=== PATIENT | female | born 1980 | race Caucasian/White ===

== ENCOUNTER 2019-07-20 10:59 | Emergency (ER) | payer OTHER, SELFPAY ==
[2019-07-20 11:02] VITALS: BP 140/96; PULSE 94; RESP 18; TEMP 36.9; O2SAT 99
--- NOTE | 2019-07-20 11:58 | ED.GENADULT ---
HPI - General Adult General Chief complaint: Wound/Laceration <ARSH Joshi Last Filed: 07/20/19 12:04> Stated complaint: dog bite to lip <RASH Joshi Filed: 07/20/19 12:04> Time Seen by Provider: 07/20/19 11:13 <ARSH Joshi Last Filed: 07/20/19 12:04> Source: patient <ARSH Joshi Filed: 07/20/19 12:04> Mode of arrival: ambulatory <ARSH Joshi Last Filed: 07/20/19 12:04> Limitations: no limitations <ARSH Joshi Last Filed: 07/20/19 12:04> History of Present Illness HPI narrative: Patient is a 39-year-old female who presents to emergency department for evaluation of dog bite to the left lower lip that occurred just prior to arrival patient notes her tetanus to be up-to-date patient notes aching pain of the lip worse with touch patient is unsure as to the dog that bit her was outside when the dog approached her and her dog causing the dogs to get into an altercation resulting in the bite to the lip patient notes isolated wound denies any other complaints or wounds. Patient on arrival resting comfortably in the room in no distress <ARSH Joshi Last Filed: 07/20/19 12:04> Related Data Allergies/adverse reactions: Allergies Allergy/AdvReac Type Severity Reaction Status Date / Time latex Allergy Intermediate Anaphylaxis Verified 07/20/19 11:12 Penicillins Allergy Intermediate Anaphylaxis Verified 07/20/19 11:12 <ARSH Joshi Last Filed: 07/20/19 12:04> Review of Systems Review of Systems: Narrative: CONSTITUTIONAL: Denies fever, chills, or sweats. EYES: Denies redness, or discharge. ENT: Denies rhinorrhea, epistaxis GASTROINTESTINAL: Denies nausea, vomiting SKIN: Positive for laceration deformity of the lip MUSCULOSKELETAL: Positive for rib pain NEUROLOGIC: Denies headache, numbness, dizziness <ARSH Joshi Last Filed: 07/20/19 12:04> [facility] Social History Social History: Social History Gender identity (if verbalized by the patient): Female <Edin Blue PA-C - Last Filed: 07/20/19 12:04> Exam Narrative: Exam Narrative: GENERAL: Well-appearing, well-nourished, and in no acute distress. HEAD: Normocephalic, patient with 3 cm x 1 cm gap deformity of the left lower lip from the midline laterally large defect centrally with irregular borders involving the majority of the vermilion border EYES: PERRLA and EOMI. ENT: Nares clear, no rhinorrhea or epistaxis. Mucous membranes moist. Oropharynx without tonsillar hypertrophy exudate or other lesions. CHEST: Clear to auscultation. No respiratory distress. No wheezes rales or rhonchi HEART: Regular rate and rhythm. No murmur heard. EXTREMITIES: Normal range of motion. No edema. SKIN: Warm, dry, no rash. NEURO: No focal deficits. Alert and oriented x3. Cranial nerves II through XII grossly intact PSYCH: Normal mood and affect. <Edin Blue PA-C - Last Filed: 07/20/19 12:04> Course Course Emergency Course: Patient in the room at this time in no distress aware of case findings treatment plan and diagnosis as well as recommendations <Edin Blue PA-C - Last Filed: 07/20/19 12:04> LUMP RECEIVER/PA Physician Supervision Attestation for Edin Blue. [id number] with the patient, she needs to leave here, to care for her 11 and 14-year-old children. Her is due back from [facility] today. He had a gunshot wound to the back and is paralyzed. She was hoping that her mother can take her to either [place] or [place] later in the day, to see a plastic surgeon, for repair of the very complex lip wound. The piece of tissue from the middle of the left lower lip to beneath the lips is missing. She says her tetanus shot is up-to-date. Will give antibiotics here and antibiotics for home, and pain medicine for home. She
[2019-07-20] MEDS: CEPHALEXIN 500 MG CAPSULE PO (12:01)
== END 2019-07-20 12:10 | disposition left against medical advice (07) ==
PROVIDERS: Emergency Provider Emergency Medicine
DX: S01.551A Open bite of lip, initial encounter (principal); W54.0XXA Bitten by dog, initial encounter
CPT/HCPCS: 99283; A9270

== ENCOUNTER 2020-12-23 12:35 | Emergency (ER) | payer OTHER, SELFPAY ==
[2020-12-23 12:47] VITALS: BP 94/76; PULSE 89; RESP 16; TEMP 36.8; O2SAT 99
--- NOTE | 2020-12-23 12:53 | ED.UPPEXIN ---
HPI - Extremity Injury (Upper) General Chief Complaint: Extremity Injury, Upper Stated Complaint: right 2nd finger swelling Time Seen by Provider: 12/23/20 13:30 Source: patient and RN notes reviewed Mode of arrival: ambulatory Limitations: no limitations History of Present Illness HPI narrative: 40-year-old female presents with concern for infection to the second digit of the right hand. Reports Monday she was junking and scraped her hand. Reports since then has become red, swollen, painful with drainage. Reports the whole finger is swollen and painful. Denies intervention. MD complaint: injury to: right and finger Related Data Allergies Allergy/AdvReac Type Severity Reaction Status Date / Time latex Allergy Intermediate Anaphylaxis Verified 07/20/19 11:12 Penicillins Allergy Intermediate Anaphylaxis Verified 07/20/19 11:12 Review of Systems Review of Systems: CONSTITUTIONAL: Denies malaise, chills, sweats, or fever. SKIN: Reports draining wound to the second digit of the right hand MUSCULOSKELETAL: Reports pain, swelling, redness to the second edge of the right hand NEUROLOGIC: Denies numbness, weakness All systems reviewed & are unremarkable except as noted in HPI and below PMFSH Social History Social History Gender identity (if verbalized by the patient): Female Comments At time of signature, agree with nursing past medical, surgical, social and family history. There is no relevant family history pertinent to the presenting complaint Exam Narrative: GENERAL: Well-appearing, well-nourished, and in no acute distress. HEAD: Normocephalic, atraumatic. EYES: PERRLA, sclera clear ENT: Mucous membranes moist. NECK: Supple. CHEST: No respiratory distress. Speaks in full sentences. HEART: Regular rate and rhythm. EXTREMITIES: Second digit of right hand has limited range of motion moderate erythema and edema. SKIN: Warm, dry, no visible rash. NEURO: Alert and oriented x3. PSYCH: Normal mood and affect Course Course Emergency Course: Patient is aware of diagnosis, understands and agrees to treatment plan. Anticipatory guidance given. Patient agrees to follow-up as directed and is aware of reasons to seek care at the emergency department. Portions of this record may have been created with voice recognition software Vital Signs Vital signs: Vital Signs Temperature 98.2 F 12/23/20 12:47 Pulse Rate 89 12/23/20 12:47 Respiratory Rate 16 12/23/20 12:47 Blood Pressure 94/76 L 12/23/20 12:47 Pulse Oximetry 99 12/23/20 12:47 Temperature 98.2 F 12/23/20 12:47 Pulse Rate 89 12/23/20 12:47 Respiratory Rate 16 12/23/20 12:47 Blood Pressure 94/76 L 12/23/20 12:47 Pulse Oximetry 99 12/23/20 12:47 Reviewed. MDM - Extremity Injury (Upper) MDM Narrative Medical decision making narrative: Exam findings show no acute concerns or changes; patient is non-toxic appearing and is in no distress. Patient is appropriate for outpatient treatment and follow-up. Differential Diagnosis Differential diagnosis: Likely finger sprain and other (Finger fracture, cellulitis, abscess, infected wound) Critical Care Time Critical Care Time Critical Care Time: No Discharge Plan Discharge Clinical Impression: Finger infection Patient Disposition: Home, Self-Care Condition: Stable Instructions: Antibiotic Form, Abscess (ED) Additional Instructions: Soak your finger: Soak your finger in a mixture of equal parts vinegar and water 3 or 4 times each day. This will help decrease inflammation. Apply a warm compress: Soak a washcloth in warm water and place it on your nail. This will help decrease inflammation. Elevate: Raise your nail above the level of your heart as often as you can. This will help decrease swelling and pain. Prop your nail on pillows or blankets to keep it elevated comfortably. Use lotion: Apply lotion after you wash your hands. Thi
--- NOTE | 2020-12-23 14:00 | PC.NURSE ---
front desk clerk in to [employer]
== END 2020-12-23 14:14 | disposition home or self-care (01) ==
PROVIDERS: Emergency Provider Nurse Practitioner
DX: L08.9 Local infection of the skin and subcutaneous tissue, unspecified (principal); Z90.5 Acquired absence of kidney
CPT/HCPCS: 10140; 87070; 87077; 87147; 87186; 87205; 99213; G0463

== ENCOUNTER 2021-01-07 16:17 | Emergency (ER) | payer OTHER, SELFPAY ==
[2021-01-07 16:40] VITALS: BP 141/90; PULSE 91; RESP 20; TEMP 37.1; O2SAT 99
--- NOTE | 2021-01-07 16:57 | ED.SKABFB ---
HPI - Skin/Abscess/Foreign Bdy General Chief complaint: Skin/Abscess/Foreign Body Stated complaint: nonhealing wounds Source: patient and RN notes reviewed Limitations: no limitations History of Present Illness HPI narrative: The patient, previously mostly healthy yet without doctor visits, presents with post procedure wound check. She states she has 2 skin lesions on her right upper extremity, for which the finger lesion was lanced at mid month. The wound culture came out heavy growth of beta-hemolytic, group A strep [no susceptibility testing], and poly resistant Atinobacter calc-rony sp -but sensitive to Augmentin, and the Bactrim she was given x 7days. She reports the ecthyma lesion on her forearm is unchanged, and she has continued discomfort of the right index finger. Symptoms are mild, worse with activity, better at rest; no fever, streaking, abscess/induration, discharge. Patient advised to follow-up with PMD, hand surgeon and or wound clinic [reference provided]. Related Data Allergies Allergy/AdvReac Type Severity Reaction Status Date / Time latex Allergy Intermediate Anaphylaxis Verified 07/20/19 11:12 Penicillins Allergy Intermediate Anaphylaxis Verified 07/20/19 11:12 Review of Systems Review of Systems: The patient has been informed that they may have pre-hypertension or Hypertension based on a BP reading in the department. I recommend that the patient call the primary care provider listed on their discharge instructions or a physician of their choice this week to arrange follow up for further evaluation of possible pre-hypertension or Hypertension General/Constitutional: No weight loss,fever Eyes: N0: Redness,discharge Ears/Nose/Throat: No: Epistaxis,ear discharge Respiratory: Denies: Hemoptysis Gastrointestinal: No Vomiting, Bleeding-rectal Skin: REPORTS lumps, eruption Neurologic: No Focal Weakness,Sz Hematologic: Denies: Petechiae/Purpura Psychiatric: No: Suicida ideationl All Other Systems: Reviewed and Negative PMFSH Social History Social History Gender identity (if verbalized by the patient): Female Comments At time of signature, agree with nursing past medical, surgical, social and family history. There is no relevant family history pertinent to the presenting complaint Exam Narrative: General Appearance: Obese/well nourished, Conjunctiva clear Ears: External ear normal, Auditory canal normal Nose: Normal nose, Nares clear Mouth/Throat: Normal appearing, Normal lips Neck: Supple Respiratory: Airway patent, No respiratory distress Ms-finger: Nl strength (mostly intact, limited flexion/extension by pain), Tenderness ( extensor, with mild decreased ROM), Scant swelling (laterally), Other (no anterior drawer, no collateral laxity) Skin: Warm, Dry, Normal color; forearm nickel size , impetiginous lesion characterized crusted sore and central erosion, ulceration Neurological: A&O x3, l affect Course Vital Signs Vital signs: Vital Signs Temperature 98.8 F 01/07/21 16:40 Pulse Rate 91 01/07/21 16:40 Respiratory Rate 20 01/07/21 16:40 Blood Pressure 141/90 H 01/07/21 16:40 Pulse Oximetry 99 01/07/21 16:40 Temperature 98.8 F 01/07/21 16:40 Pulse Rate 91 01/07/21 16:40 Respiratory Rate 20 01/07/21 16:40 Blood Pressure 141/90 H 01/07/21 16:40 Pulse Oximetry 99 01/07/21 16:40 Discharge Plan Discharge Clinical Impression: Ecthyma, Pruritic condition Patient Disposition: Home, Self-Care Condition: Stable Instructions: Cellulitis (ED) Additional Instructions: Stop clindamycin if diarrhea occurs; take clindamycin with food, probiotic and/or antacid Keep photo log of area,Return if worsens to hospital See wound care clinic in follow-up [Ranjith [phone]] Prescriptions: New clindamycin HCl 300 mg capsule 300 mg PO TID Qty: 21 RF: 0 mupirocin 2 % ointment 1 ap
--- NOTE | 2021-01-07 17:40 | PC.NURSE ---
wound was wraped with tefla and coban
== END 2021-01-07 17:46 | disposition home or self-care (01) ==
PROVIDERS: Emergency Provider Emergency Medicine
DX: L08.0 Pyoderma (principal); L29.9 Pruritus, unspecified
CPT/HCPCS: 99213; G0463

== ENCOUNTER 2021-08-24 18:16 | Emergency (ER) | payer OTHER, SELFPAY ==
[2021-08-24 18:22] VITALS: BP 130/86; PULSE 96; RESP 16; TEMP 36.7; O2SAT 100
--- NOTE | 2021-08-24 18:58 | ED.ABDPAIN ---
HPI - Abdominal Pain General Chief Complaint: Abdominal Pain Stated Complaint: abd pain Time Seen by Provider: 08/24/21 18:58 Source: patient, RN notes reviewed and old records reviewed Mode of arrival: ambulatory Limitations: no limitations History of Present Illness HPI narrative: 41-year-old female presents to the [facility] with generalized abdominal pain since yesterday. Patient states that she has had diarrhea, denies vomiting. Denies chest pain or shortness of breath. Denies fevers. history of her gallbladder removed. Denies taking any medications MD elicited complaint: abdominal pain Onset (ago): day(s) (1) Related Data Home Medications Medication Instructions Recorded Confirmed No Home Medications 08/24/21 08/24/21 Allergies Allergy/AdvReac Type Severity Reaction Status Date / Time latex Allergy Intermediate Anaphylaxis Verified 07/20/19 11:12 Penicillins Allergy Intermediate Anaphylaxis Verified 07/20/19 11:12 Review of Systems Review of Systems: All systems reviewed & are unremarkable except as noted in HPI and below Constitutional: Constitutional: Reports no additional constitutional complaints, Denies body ache(s), Denies chills and Denies fever(s) Eyes: Eyes: Reports no additional eye complaints ENT: Reports system reviewed and no additional complaints, except as documented Cardiovascular: Cardiovascular: Reports no additional cardiovascular complaints, Denies chest pain and Denies dyspnea Respiratory: Respiratory: Reports no additional respiratory complaints, Denies cough and Denies dyspnea Gastrointestinal: Gastrointestinal: Reports as per HPI, Reports abdominal pain, Reports diarrhea, Denies nausea and Denies vomiting Genitourinary: Genitourinary: Reports no additional female genitourinary complaints Musculoskeletal: Musculoskeletal: Reports no additional musculoskeletal complaints Integumentary/Breasts: Skin/Breast: Reports system reviewed and no additional complaints, except as docu Neurologic: Reports system reviewed and no additional complaints, except as documented Psychiatric: Psychiatric: Reports no additional psychiatric complaints Allergic/Immunologic: Allergic/Immunologic: Reports no additional allergic/immunologic complaints PMFSH Surgical History Surgical History (Updated 08/24/21 @ 19:12 by Eugenie Yi APRN) Hx of cholecystectomy Social History Social History Gender identity (if verbalized by the patient): Female Comments At the time of my signature, I reviewed and agree with the nursing past medical, surgical, social, and family history. There is no relevant family history pertinent to the patient complaint. Exam Const: General: cooperative, healthy appearing, comfortable, well developed, alert and ill appearing (in pain) acutely Nutritional Appearance: well nourished and obese Orientation/consciousness: patient oriented x3 Limitations: no limitations HENMT: Head: normal to inspection Ears: external ears normal Eyes: Pupils: Equal, round and reactive pupils present Neck: Neck: normal visual inspection, no lymphadenopathy and no meningeal signs Chest: Chest palpation & inspection: normal inspection of the chest Resp: Effort & Inspection: normal respiratory effort, able to speak in complete sentences and no use of accessory muscles Auscultation: clear to auscultation bilaterally Cardio: Rate: regular rate Rhythm: regular rhythm GI: Inspection: distended GI Palp: Yes Soft to palpation, Yes Tenderness to palpation present (GI) and Yes Guarding due to palpation present (GI) Auscultation: normal bowel sounds Back/Spine/Pelvis: Back: no CVA tenderness Skin: General skin exam: normal color and no rashes or lesions noted Rashes: no rashes Wounds: no wounds Neuro: General: patient oriented x3, gait normal, moves all extremities, no meningeal signs and no focal motor deficits Cranial nerves: Yes
== END 2021-08-24 19:06 | disposition short-term general hospital (02) ==
PROVIDERS: Emergency Provider Nurse Practitioner
DX: R10.84 Generalized abdominal pain (principal); Z90.5 Acquired absence of kidney; Z86.16 Personal history of COVID-19
CPT/HCPCS: 99212; G0463

== ENCOUNTER 2021-08-24 19:43 | Emergency (ER) | payer OTHER, SELFPAY ==
--- NOTE | ~2021-08-24 | CT_ITS ---
EXAMINATION: CT abdomen pelvis wo con DATE: 08/25/2021 00:15 INDICATION: Diffuse abdominal pain, diarrhea for one day. Leukocytosis. TECHNIQUE: Computed tomography (CT) of the abdomen and pelvis was performed without intravenous contr ast. Automated exposure control and iterative reconstruction technique were employed. Exam dose: 142 8.34 mGy-cm total exam DLP. COMPARISON: 07/05/2014 CT abdomen pelvis FINDINGS: The lung bases are clear. Normal heart size. No pericardial or pleural effusion. Status post cholecystectomy. No bile duct or pancreatic duct dilatation. No hepatic, splenic, pancreatic space-occupying mass lesion. 7 x 8.9 mm right adrenal mass, likely an adenoma. The adrenal glands are otherwise unremarkable. Status post left nephrectomy. No right renal mass lesion is evident on this limited noncontrast exami nation. No right urinary tract calculus or hydroureteronephrosis. Urinary bladder is evacuated. The u terus and adnexal areas are unremarkable. Normal caliber of the abdominal aorta. No intraperitoneal or retroperitoneal or pelvic mass lesion or adenopathy or ascites. Normal appendix. There is minimal colonic diverticulosis; no CT evidence of diverticulitis. No bowel obstruction, bowel wall thickening, pneumatosis or intraperitoneal free air. Included skeletal structures are unremarkable. 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 Reviewed, dictated and finalized at [facility].
[2021-08-24 19:48] VITALS: BP 121/77; PULSE 94; RESP 16; TEMP 36.2; O2SAT 100
[2021-08-24 20:14] LABS: Basophils Absolute Auto 0.1 K/mm3 (0.0-0.1); Basophils Percent Auto 0.3 % (0.2-1.2); Eosinophils Absolute Auto 0.5 K/mm3 (0-0.3); Eosinophils Percent Auto 3.1 % (0-4.4); Hematocrit 41.9 % (37.0-47.0); Immature Granulocyte Absolute 0.11 K/mm3 (0.00-0.031); Immature Granulocyte Percent A 0.7 % (0-0.5); Lymphocytes Absolute Auto 2.85 K/mm3 (0.9-3.2); Lymphocytes Percent Auto 16.8 % (18.3-44.2); Mean Corpuscular Hemoglobin 28.2 pg (26-34); Mean Corpuscular Volume 90.9 fl (80-100); Mean Platelet Volume 9.4 fl (7.4-10.4); Monocytes Absolute Auto 1.2 K/mm3 (0.1-0.6); Monocytes Percent Auto 6.9 % (2.6-8.5); Neutrophils Absolute Auto 12.2 K/mm3 (1.3-6.7); Neutrophils Percent Auto 72.2 % (45.5-73.1); Platelet Count Result 361 k/mm3 (150-375); Red Blood Count 4.61 M/mm3 (4.2-5.4); Red Cell Distribution Width 13.9 % (11.5-14.5); White Blood Count 16.9 K/mm3 (4.5-10.0)
[2021-08-24 20:19] LABS: Alanine Aminotransferase 24 U/L (6-35); Alkaline Phosphatase 93 U/L (38-126); Anion Gap 6 mmol/L (8-16); Aspartate Amino Transferase 23 U/L (14-36); Bilirubin,Total 0.6 mg/dL (0.2-1.3); Blood Urea Nitrogen 10 mg/dL (7-17); Calcium 9.2 mg/dL (8.4-10.2); Carbon Dioxide 24 mmol/L (22-30); Chloride 106 mmol/L (98-107); Estimated Glomerular Filt Rate > 60; Glucose 78 mg/dL (65-110); Lipase 23 U/L (23-300); Potassium 4.1 mmol/L (3.4-5.0); Sodium 136 mmol/L (137-145)
--- NOTE | 2021-08-24 22:37 | ED.ABDPAIN ---
HPI - Abdominal Pain General Chief Complaint: Abdominal Pain Stated Complaint: abd pain Time Seen by Provider: 08/24/21 22:19 Source: patient Mode of arrival: ambulatory Limitations: no limitations History of Present Illness HPI narrative: Patient is a 41-year-old female who presents to the ED with report of diffuse abdominal pain. Patient reports the pain began around 8 AM yesterday morning while she was at work. She states the pain is sharp and stabbing diffusely throughout her abdomen. No localized pain. She tried taking Advil earlier today without relief of pain. She went to an urgent care where she was then referred here for further evaluation. She also reports having nausea, diarrhea, and chills last night. She has had multiple episodes of watery diarrhea. She denies any known fever, vomiting, recent cough or cold symptoms, rectal bleeding, urinary symptoms. Related Data Allergies Allergy/AdvReac Type Severity Reaction Status Date / Time latex Allergy Intermediate Anaphylaxis Verified 08/24/21 22:28 Penicillins Allergy Intermediate Anaphylaxis Verified 08/24/21 22:28 Review of Systems Review of Systems: CONSTITUTIONAL: Reports chills. Denies fever. ENT: Denies rhinorrhea, congestion, sore throat. CARDIOVASCULAR: Denies chest pain. RESPIRATORY: Denies cough or dyspnea. GASTROINTESTINAL: Reports diffuse ABD pain, nausea, diarrhea. Denies vomiting, rectal bleeding. GENITOURINARY: Denies dysuria, urinary frequency, or hematuria. MUSCULOSKELETAL: Denies back pain, joint pain, or myalgia. NEUROLOGIC: Denies headache, numbness, or weakness. [facility] Past Medical History Medical History (Updated 08/25/21 @ 02:03 by Dianne Daniels PA-C) No pertinent past medical history Surgical History Surgical History (Updated 08/24/21 @ 22:43 by Dianne Daniels PA-C) History of section History of left nephrectomy Hx of cholecystectomy Social History Social History (Updated 08/24/21 @ 22:42 by Dianne Daniels PA-C) Smoking status: Current every day smoker Gender identity (if verbalized by the patient): Female Exam Narrative: GENERAL: Mildly disheveled, obese, non-toxic, in no acute distress. HEAD: Normocephalic, atraumatic. NECK: Supple. No adenopathy, no masses. RESPIRATORY: Airway patent, respirations nonlabored. Clear to auscultation bilaterally, no rales, rhonchi, wheezing. CARDIOVASCULAR: Regular rate and rhythm without murmurs, rubs, or gallops. Peripheral pulses 2+ and equal bilaterally. ABDOMINAL: Soft, mild diffuse nonspecific tenderness to palpation, voluntary guarding, nondistended, no hepatosplenomegaly. Normoactive BS. MUSCULOSKELETAL: Moves all extremities. Strength/ROM intact without gross deformities. SKIN: Warm, dry, normal color. No rashes. NEURO: A&O X3. Speech clear. Cranial nerves II-XII grossly intact. Steady gait. No ataxic movements. PSYCHIATRIC: Appropriate mood and affect. Normal interaction. Course Vital Signs Vital signs: Vital Signs Temperature 97.2 F L 08/24/21 19:48 Pulse Rate 94 08/24/21 19:48 Respiratory Rate 16 08/24/21 19:48 Blood Pressure 121/77 08/24/21 19:48 Pulse Oximetry 100 08/24/21 19:48 Temperature 97.2 F L 08/24/21 19:48 Pulse Rate 67 08/25/21 02:08 Respiratory Rate 18 08/25/21 02:08 Blood Pressure 94/57 L 08/25/21 02:08 Pulse Oximetry 97 08/25/21 02:08 MDM - Abdominal Pain MDM Narrative Medical decision making narrative: Patient presented to ED with diffuse abdominal pain and diarrhea. Vital signs stable upon arrival. Nonspecific tenderness on exam. No signs of surgical abdomen on evaluation. Laboratory evaluation notable for mild leukocytosis of 16.9. Patient does report having several episodes of diarrhea recently. No reported vomiting. No steroid use. No other infectious symptoms, cough, cold symptoms to explain leukocytosis. No bandemia. No significant electrolyte abnormality. Urine shows 10-15 WBC, but likel
[2021-08-24] MEDS: ONDANSETRON INJ 4 MG/2 ML VIAL IV PUSH (23:36)
[2021-08-24] MEDS: SODIUM CHLORIDE 0.9% IV 1,000 ML 999 ML IV CONT (23:36)
[2021-08-25 00:32] LABS: Appearance Urine Slightly Cloudy (Clear); Bilirubin Urine Negative (Negative); Blood Urine 1+ (Negative); Glucose Urine UA Negative (Negative); Ketones Urine Negative (Negative); Leukocyte Esterase Ur Negative LEU/UL (Negative); Nitrate Urine Negative (Negative); Protein Urine 2+ mg/dL (Negative); Specific Grav Ur >= 1.030 (1.001-1.035); Urobilinogen Urine 0.2 mg/dL (<2.0); pH Urine 5.5 (5.0-9.0)
[2021-08-25 00:34] LABS: Add Urine Microscopic? YES; Color Urine Dark Yellow (Yellow)
[2021-08-25 00:41] LABS: Bacteria Urine Trace /hpf; Mucus Urine Rare /lpf; Squamous Epithelial Cell Urine Many /hpf (Few)
[2021-08-25] MEDS: KETOROLAC 30 MG/ML VIAL (*BKC) IV PUSH (01:45)
[2021-08-25] MEDS: DICYCLOMINE HCL 10 MG CAPSULE 20 MG PO (01:46)
[2021-08-25 02:08] VITALS: BP 94/57; PULSE 67; RESP 18; O2SAT 97
== END 2021-08-25 02:13 | disposition home or self-care (01) ==
PROVIDERS: Emergency Provider Emergency Medicine
DX: R10.84 Generalized abdominal pain (principal); R19.7 Diarrhea, unspecified; Z90.5 Acquired absence of kidney; F17.200 Nicotine dependence, unspecified, uncomplicated
CPT/HCPCS: 36415; 74176; 80053; 81001; 81025; 83690; 85025; 87077; 87086; 87088; 87186; 96365; 96374; 96375; 99212; 99284; A9270; G0463; J0131; J1885; J2405; J7030

== ENCOUNTER 2021-12-07 10:11 | Emergency (ER) | payer OTHER, SELFPAY ==
[2021-12-07 10:22] VITALS: BP 131/82; PULSE 91; RESP 16; TEMP 36.9; O2SAT 99
--- NOTE | 2021-12-07 10:24 | ED.ABDPAIN ---
HPI - Abdominal Pain General Chief Complaint: Nausea/Vomiting/Diarrhea Stated Complaint: Abdominal Pain Time Seen by Provider: 12/07/21 10:25 Source: patient Mode of arrival: ambulatory Limitations: no limitations History of Present Illness HPI narrative: Ms. Mendoza is a 41-year-old female patient presenting to the clinic today with complaints of nausea, vomiting, diarrhea, and abdominal cramping x4 days. She reports when she went to work today she started with vomiting and diarrhea and had to come home and her boss was upset with her. She reports her abdomen cramping comes and goes. States she is trying to remain hydrated. No fevers or chills. No known exposure to anyone with COVID, flu, or strep Related Data Allergies Allergy/AdvReac Type Severity Reaction Status Date / Time latex Allergy Intermediate Anaphylaxis Verified 08/24/21 22:28 Penicillins Allergy Intermediate Anaphylaxis Verified 08/24/21 22:28 Review of Systems Review of Systems: Pertinent positives per HPI. Patient denies any fever, chills, rash, headache, visual changes, dizziness, cough, runny nose, sore throat, shortness of breath, chest pain, palpitations, constipation, or any urinary issues. [facility] Past Medical History Medical History No pertinent past medical history Surgical History Surgical History History of section History of left nephrectomy Hx of cholecystectomy Social History Social History Smoking status: Current every day smoker Gender identity (if verbalized by the patient): Female Comments At the time of my signature, I reviewed and agree with the nursing past medical, surgical, social, and family history. There is no relevant family history pertinent to the patient complaint. Exam Narrative: General: Well-developed, obese, in no apparent distress Head: Normocephalic, atraumatic Eyes: Pupils equally round and reactive to light bilaterally, EOM intact, sclera and conjunctive clear, no discharge, lids normal Ears: TMs intact and clear, ear canals clear, no drainage, grossly hearing normal. Nose: Nares patent, clear nasal discharge, mild inflammation, no sinus tenderness. Mouth: Oropharynx without lesions or masses, good dentition, MMM. Oropharynx red with tonsillar swelling Neck: Supple, trachea midline, enlargement of anterior cervical nodes, no thyroid masses or goiter palpable. Cardio: Regular rate and rhythm, s1 and s2 normal, no murmur appreciated. Resp: Clear to auscultation bilaterally anteriorly and posteriorly, no rhonchi, rales, wheezing or rubs Abdomen: Soft, pliable, bowel sounds present in all quadrants, non-tender to palpation, no organomegly, no CVAT tenderness. Course Course Emergency Course: Portions of this record may have been created with voice recognition software. Level of Care: Express Care Visit Vital Signs Vital signs: Vital Signs Temperature 36.9 C 12/07/21 10:22 Pulse Rate 91 12/07/21 10:22 Respiratory Rate 16 12/07/21 10:22 Blood Pressure 131/82 12/07/21 10:22 Pulse Oximetry 99 12/07/21 10:22 Oxygen Delivery Room Air 12/07/21 10:22 Temperature 36.9 C 12/07/21 10:22 Pulse Rate 91 12/07/21 10:22 Respiratory Rate 16 12/07/21 10:22 Blood Pressure 131/82 12/07/21 10:22 Pulse Oximetry 99 12/07/21 10:22 Oxygen Delivery Room Air 12/07/21 10:22 Vital signs reviewed MDM - Abdominal Pain MDM Narrative Medical decision making narrative: At the time of visit patient is resting comfortably on the exam table. Strep screen, influenza, and COVID testing was completed in the clinic today. Strep screen is positive in the clinic. I suspect patient has strep pharyngitis with gastroenteritis. Supportive measures were discussed with the patient she voiced understandi
== END 2021-12-07 11:07 | disposition home or self-care (01) ==
PROVIDERS: Emergency Provider Nurse Practitioner Family
DX: J02.0 Streptococcal pharyngitis (principal); K21.9 Gastro-esophageal reflux disease without esophagitis; Z20.822 Contact with and (suspected) exposure to COVID-19; F17.200 Nicotine dependence, unspecified, uncomplicated
CPT/HCPCS: 87426; 87804; 87880; 99213; C9803; G0463

== ENCOUNTER 2022-08-26 17:26 | Emergency (ER) | payer OTHER, SELFPAY ==
[2022-08-26 17:32] VITALS: BP 124/57; PULSE 73; RESP 16; TEMP 37.6; O2SAT 100
--- NOTE | 2022-08-26 18:04 | ED.EAR ---
HPI - Ear Problem General Chief complaint: Ear Stated complaint: Ears Irritation Time Seen by Provider: 08/26/22 17:59 Source: patient and RN notes reviewed Mode of arrival: ambulatory Limitations: no limitations History of Present Illness HPI Narrative: Patient presents today complaining of left ear pain since last night that has persisted today. Describes the pain as sharp. Hearing is normal. Denies drainage. Currently rates her pain 7/10 and has tried no [id number] treatment prior to arrival. Related Data Allergies Allergy/AdvReac Type Severity Reaction Status Date / Time latex Allergy Intermediate Anaphylaxis Verified 08/26/22 17:31 Penicillins Allergy Intermediate Anaphylaxis Verified 08/26/22 17:31 Review of Systems Review of Systems: CONSTITUTIONAL: Denies body aches, fever, chills, or sweats. EYES: Denies visual changes, redness, or discharge. ENT: Denies rhinorrhea, congestion, sore throat. + left ear pain CARDIOVASCULAR: Denies chest pain, palpitations, or edema. RESPIRATORY: Denies cough or dyspnea. GASTROINTESTINAL: Denies abdominal pain, nausea, vomiting, or diarrhea. GENITOURINARY: Denies dysuria or hematuria. SKIN: Denies rash, itching, or wounds. MUSCULOSKELETAL: Denies back pain, joint pain, or myalgia. NEUROLOGIC: Denies headache, numbness, tingling, or weakness. PSYCH: Denies depression or anxiety. PMFSH Past Medical History Medical History No pertinent past medical history Surgical History Surgical History History of section History of left nephrectomy Hx of cholecystectomy Social History Social History Smoking status: Current every day smoker Gender identity (if verbalized by the patient): Female Comments At time of signature, I have reviewed and agree with nursing past medical, surgical, social and family history unless otherwise noted. Please see nursing chart for further information. There is no relevant family history pertinent to the presenting complaint Exam Narrative: GENERAL: Well-appearing, well-nourished, and in no acute distress. HEAD: Normocephalic, atraumatic. EYES: EOMI. No redness or drainage. Conjunctivae normal. ENT: Mucous membranes pink and moist. Nares clear. No rhinorrhea. Right TM and canal normal. Left TM injected. Left canal erythematous and slightly swollen. NECK: Normal AROM. CHEST: No respiratory distress. EXTREMITIES: Normal range of motion. No edema. SKIN: Warm, dry, no rash. Capillary refill normal. Normal skin turgor. NEURO: No focal deficits. Alert and oriented x3. Gait steady. PSYCH: Normal affect. No signs of depression or anxiety. Course Course Level of Care: Express Care Visit Vital Signs Vital signs: Vital Signs Temperature 99.7 F H 08/26/22 17:32 Pulse Rate 73 08/26/22 17:32 Respiratory Rate 16 08/26/22 17:32 Blood Pressure 124/57 L 08/26/22 17:32 Pulse Oximetry 100 08/26/22 17:32 Oxygen Delivery Room Air 08/26/22 17:32 Temperature 99.7 F H 08/26/22 17:32 Pulse Rate 73 08/26/22 17:32 Respiratory Rate 16 08/26/22 17:32 Blood Pressure 124/57 L 08/26/22 17:32 Pulse Oximetry 100 08/26/22 17:32 Oxygen Delivery Room Air 08/26/22 17:32 Reviewed. Pt has been instructed to follow up with her PCP regarding her elevated blood pressure today. Medical Decision Making MDM Narrative Medical decision making narrative: Patient's symptoms consistent with otitis media and otitis externa. Will treat with amoxicillin and ciprofloxacin drops. Patient states she is unable to take penicillin but can take amoxicillin. Anticipatory guidance given. Differential Diagnosis Differential Diagnosis: Otitis media, otitis externa, ruptured TM, serous otitis, eustachian tube dysfunction, cerumen impaction
== END 2022-08-26 18:17 | disposition home or self-care (01) ==
PROVIDERS: Emergency Provider Nurse Practitioner
DX: H60.502 Unspecified acute noninfective otitis externa, left ear (principal); F17.210 Nicotine dependence, cigarettes, uncomplicated
CPT/HCPCS: 99213; G0463

== ENCOUNTER 2022-11-14 13:46 | Emergency (ER) | payer OTHER, SELFPAY ==
[2022-11-14 14:14] VITALS: BP 127/81; PULSE 96; RESP 16; TEMP 37.1; O2SAT 100
--- NOTE | 2022-11-14 15:25 | ED.URI ---
HPI - URI/Sore Throat General Chief Complaint: Upper Respiratory Infection Stated Complaint: congested,frankie throat,migraine Time Seen by Provider: 11/14/22 15:11 Source: patient and RN notes reviewed Mode of arrival: ambulatory Limitations: no limitations History of Present Illness HPI Narrative: Patient presents today complaining of a 2 day history of congestion, cough, sneezing, headache. She reports 8 episodes of vomiting today. Denies any current nausea. Denies fever, shortness of breath, abdominal pain, diarrhea. She has taken a dose of Tylenol without relief. Denies any known sick contacts, but works [employer]. Related Data Allergies Allergy/AdvReac Type Severity Reaction Status Date / Time latex Allergy Intermediate Anaphylaxis Verified 11/14/22 15:30 Penicillins Allergy Intermediate Anaphylaxis Verified 11/14/22 15:30 Review of Systems Review of Systems: CONSTITUTIONAL: Denies body aches, fever, chills, or sweats. EYES: Denies visual changes, redness, or discharge. ENT: Denies rhinorrhea, sore throat, or otalgia.+ congestion, sneezing CARDIOVASCULAR: Denies chest pain, palpitations, or edema. RESPIRATORY: Denies dyspnea.+ cough GASTROINTESTINAL: Denies abdominal pain, nausea, or diarrhea.+ vomiting GENITOURINARY: Denies dysuria or hematuria. SKIN: Denies rash, itching, or wounds. MUSCULOSKELETAL: Denies back pain, joint pain, or myalgia. NEUROLOGIC: Denies numbness, tingling, or weakness.+ headache PSYCH: Denies depression or anxiety. PMF Past Medical History Medical History No pertinent past medical history Surgical History Surgical History History of section History of left nephrectomy Hx of cholecystectomy Social History Social History Smoking status: Current every day smoker Gender identity (if verbalized by the patient): Female Comments At time of signature, I have reviewed and agree with nursing past medical, surgical, social and family history unless otherwise noted. Please see nursing chart for further information. There is no relevant family history pertinent to the presenting complaint Exam Narrative: GENERAL: Well-appearing, well-nourished, and in no acute distress. HEAD: Normocephalic, atraumatic. EYES: EOMI. No redness or drainage. Conjunctivae normal. ENT: Mucous membranes pink and moist. Nares congested. No rhinorrhea. TMs normal bilaterally. Throat normal. Uvula midline. NECK: Normal AROM. Supple. No lymphadenopathy. CHEST: No respiratory distress. Clear to auscultation. HEART: Regular rate and rhythm. No murmur appreciated. Normal peripheral pulses. EXTREMITIES: Normal range of motion. No edema. SKIN: Warm, dry, no rash. Capillary refill normal. Normal skin turgor. NEURO: No focal deficits. Alert and oriented x3. Gait steady. PSYCH: Normal affect. No signs of depression or anxiety. Course Course Level of Care: Express Care Visit Vital Signs Vital signs: Vital Signs Temperature 98.7 F 11/14/22 14:14 Pulse Rate 96 11/14/22 14:14 Respiratory Rate 16 11/14/22 14:14 Blood Pressure 127/81 11/14/22 14:14 Pulse Oximetry 100 11/14/22 14:14 Oxygen Delivery Room Air 11/14/22 14:14 Temperature 98.7 F 11/14/22 14:14 Pulse Rate 96 11/14/22 14:14 Respiratory Rate 16 11/14/22 14:14 Blood Pressure 127/81 11/14/22 14:14 Pulse Oximetry 100 11/14/22 14:14 Oxygen Delivery Room Air 11/14/22 14:14 Reviewed. Pt has been instructed to follow up with her PCP regarding her elevated blood pressure today. MDM - URI/Sore Throat MDM Narrative Medical decision making narrative: Strep screen negative. Culture pending. COVID-19 negative. Symptoms likely viral in etiology. Discussed [id number] treatment. Will prescribe some Zofran for
== END 2022-11-14 15:36 | disposition home or self-care (01) ==
PROVIDERS: Emergency Provider Nurse Practitioner; PCP Emergency Medicine
DX: B34.9 Viral infection, unspecified (principal); F17.210 Nicotine dependence, cigarettes, uncomplicated; Z20.822 Contact with and (suspected) exposure to COVID-19
CPT/HCPCS: 87081; 87426; 87880; 99213; C9803; G0463

== ENCOUNTER 2024-02-04 10:22 | Emergency (ER) | payer OTHER, MEDICAID, SELFPAY ==
[2024-02-04 10:31] VITALS: BP 121/68; PULSE 82; RESP 18; TEMP 37; O2SAT 100
--- NOTE | 2024-02-04 11:01 | ED_ITS ---
HPI - URI/Sore Throat General Chief Complaint: Upper Respiratory Infection Stated Complaint: Sore Throat/Sinus Time Seen by Provider: 02/04/24 10:43 Source: patient and RN notes reviewed Mode of arrival: ambulatory Limitations: no limitations History of Present Illness HPI Narrative: Patient presents today complaining of a 6 day history of body aches, headache, nasal congestion, nausea, cough, subjective fever. States she tested positive at home for COVID 5 days ago, but was wondering if it was a false positive. Denies chest pain or shortness of breath. She has been using cough drops with some mild relief. Denies any history of asthma or COPD. She vapes occasionally. Related Data Home Medications Medication Instructions Recorded Confirmed aripiprazole 5 mg tablet 5 mg PO DAILY 02/04/24 02/04/24 bupropion HCl 150 mg 24 hr tablet, 150 mg PO DAILY 02/04/24 02/04/24 extended release bupropion HCl 300 mg 24 hr tablet, 300 mg PO DAILY 02/04/24 02/04/24 extended release hydroxyzine HCl 50 mg tablet 50 mg PO DAILY 02/04/24 02/04/24 naltrexone 50 mg tablet 50 mg PO DAILY 02/04/24 02/04/24 nicotine 21 mg/24 hr daily 1 patch topical DAILY 02/04/24 02/04/24 transdermal patch Allergies Allergy/AdvReac Type Severity Reaction Status Date / Time latex Allergy Intermediate Anaphylaxis Verified 02/04/24 10:26 Penicillins Allergy Intermediate Anaphylaxis Verified 02/04/24 10:26 Review of Systems Review of Systems: CONSTITUTIONAL: Denies chills, or sweats.+ body aches, subjective fever EYES: Denies visual changes, redness, or discharge. ENT: Denies rhinorrhea, or otalgia.+ congestion, sore throat CARDIOVASCULAR: Denies chest pain, palpitations, or edema. RESPIRATORY: Denies dyspnea.+ cough GASTROINTESTINAL: Denies abdominal pain, vomiting, or diarrhea.+ nausea GENITOURINARY: Denies dysuria or hematuria. SKIN: Denies rash, itching, or wounds. MUSCULOSKELETAL: Denies back pain, joint pain, or myalgia. NEUROLOGIC: Denies numbness, tingling, or weakness.+ headache PSYCH: Denies depression or anxiety. [facility] Past Medical History Medical History No pertinent past medical history Surgical History Surgical History History of section History of left nephrectomy Hx of cholecystectomy Social History Social History Smoking status: Current every day smoker Gender identity (if verbalized by the patient): Female Comments At time of signature, I have reviewed and agree with nursing past medical, surgical, social and family history unless otherwise noted. Please see nursing chart for further information. There is no relevant family history pertinent to the presenting complaint Exam Narrative: GENERAL: Well-appearing, well-nourished, and in no acute distress. HEAD: Normocephalic, atraumatic. EYES: EOMI. No redness or drainage. Conjunctivae normal. ENT: Mucous membranes pink and moist. Nares clear. No rhinorrhea. TMs normal bilaterally. Throat normal. Uvula midline. NECK: Normal AROM. Supple. No lymphadenopathy. CHEST: No respiratory distress. Clear to auscultation. HEART: Regular rate and rhythm. No murmur appreciated. EXTREMITIES: Normal range of motion. No edema. SKIN: Warm, dry, no rash. Capillary refill normal. Normal skin turgor. NEURO: No focal deficits. Alert and oriented x3. Gait steady. PSYCH: Normal affect. No signs of depression or anxiety. Course Course Level of Care: Express Care Visit Vital Signs Vital signs: Vital Signs Temperature 98.6 F 02/04/24 10:31 Pulse Rate 82 02/04/24 10:31 Respiratory Rate 18 02/04/24 10:31 Blood Pressure 121/68 02/04/24 10:31 Pulse Oximetry 100 02/04/24 10:31 Oxygen Delivery Room Air 02/04/24 10:31 Temperature 98.6 F 02/04/24 10:31 Pulse Rate 82 02/04/24 10:31 Respiratory Rate 18 02/04/24 10:31 Blood Pressure 121/68 02/04/24 10:31 Pulse Oximetry 100 02/04/24 10:31 Oxygen Delivery Room Air 02/04/24 10:31 Reviewed MDM - URI/Sore Throat MDM Narrative Medical decision making narrative: Influenza and rapid strep negative. Strep culture pending. Patient had a positive COVID-19 test at home, and it is assumed to be accurate. Did not retest her today. Discussed with patient that her symptoms are consistent with COVID. Discussed options for [id number] treatment. Exam is grossly normal. Anticipatory guidance given. Differential Diagnosis Differential diagnosis: Likely upper respiratory infection, viral infection, influenza, pharyngitis and other (Strep throat, COVID) Lab Data Attestation: I reviewed the patient's lab results. Lab results narrative: Influenza and rapid strep negative Critical Care Time Critical Care Time Critical Care Time: No Discharge Plan Discharge Clinical Impression: COVID-19 Patient Disposition: Home, Self-Care Condition: Stable Instructions: COVID-19 (Coronavirus Disease 2019) (ED) Additional Instructions: Your symptoms are likely due to COVID-19. Treat symptoms with Tylenol or ibuprofen for pain or fever. You may take some oiky-ywj-zxzvzer cough medicine as needed such as Delsym, Mucinex, Robitussin DM. Follow-up with your PCP in 4- 5 days if symptoms are not improving. Go to the ER if symptoms worsen to include shortness of breath with, fever greater than 100.3, chest pain. Your blood pressure was elevated above 120/80 today at Urgent Care. This puts you above the threshold for follow up. Please schedule a followup visit with your personal physician as soon as possible, for further evaluation and treatment. Even blood pressure exceeding 120/80 may indicate pre-hypertension. Prescriptions: No Action naltrexone 50 mg tablet 50 mg PO DAILY hydroxyzine HCl 50 mg tablet 50 mg PO DAILY nicotine 21 mg/24 hr patch 24 hour 1 patch topical DAILY aripiprazole 5 mg tablet 5 mg PO DAILY bupropion HCl 300 mg tablet extended release 24 hr 300 mg PO DAILY bupropion HCl 150 mg tablet extended release 24 hr 150 mg PO DAILY Follow-up/Referrals: Dominic Guerra MD [Primary Care Provider] - Time of Disposition: 11:07
[2024-02-04 11:10] LABS: EDINFLUASCREEN Negative (Negative); EDINFLUBSCREEN Negative (Negative); EDSTREPNEGPOS1 Negative (Negative)
== END 2024-02-04 11:25 | disposition home or self-care (01) ==
PROVIDERS: Emergency Provider Nurse Practitioner; PCP Emergency Medicine
DX: U07.1 COVID-19 (principal); Z90.5 Acquired absence of kidney; F17.200 Nicotine dependence, unspecified, uncomplicated
CPT/HCPCS: 87081; 87804; 87880; 99213; G0463